=== PATIENT | female | born 1995 | race African-American/Black ===

== ENCOUNTER 2018-03-22 09:58 | Emergency (ER) | payer MEDICAID, OTHER ==
[~2018-03-22] VITALS: Ht 152.4 cm; Wt 46.7 kg
[2018-03-22 10:44] VITALS: BP 121/70
== END 2018-03-22 11:23 | disposition home or self-care (01) ==
LOC: ER 09:58
DX: E04.9 Nontoxic goiter, unspecified (principal); R05 Cough; R06.7 Sneezing; R11.10 Vomiting, unspecified

== ENCOUNTER 2024-01-28 14:29 | Emergency (ER) | payer SELFPAY ==
[~2024-01-28] VITALS: Ht 157.5 cm; Wt 54.5 kg
[2024-01-28 15:00] VITALS: PULSE 82; RESP 14; O2SAT 98
[2024-01-28] MEDS: LACTATED RINGER'S 1,000 ML IV ONE (15:32)
[2024-01-28] MEDS: MECLIZINE HCL 25 MG TAB PO ONE (15:32)
[2024-01-28] MEDS: ONDANSETRON ODT 4 MG TAB PO ONE (15:33)
[2024-01-28 15:35] VITALS: TEMP 98.2
[2024-01-28 15:41] LABS: Basophils # (auto) 0 10 ^3/uL (0-0.2); Basophils % (auto) 0.5 % (0.0-2.0); Eosinophils # (auto) 0 10 ^3/uL (0-0.8); Eosinophils % (auto) 0.6 % (0.0-7.0); Hematocrit 41.4 % (36.0-46.0); Hemoglobin 14.8 g/dL (12.2-16.2); Lymphocytes # (auto) 2.8 10 ^3/uL (0.4-5.4); Lymphocytes % (auto) 37.7 % (10.0-50.0); Mean Corpuscular Hemoglobin 29.9 pg (28.0-32.0); Mean Corpuscular Hgb Conc. 35.8 g/dL (32.0-36.0); Mean Corpuscular Volume 83.6 fL (80.0-100.0); Monocytes # (auto) 0.5 10 ^3/uL (0-1.3); Monocytes % (auto) 7.1 % (0.0-12.0); Neutrophils % (auto) 54.1 % (37.0-80.0); Nucleated Red Blood Cells % 0.7 %; Platelet Count (auto) 270 10^3/uL (140-450); Red Blood Cells 4.95 10^6/uL (4.0-5.20); Red Cell Distribution Width 13.4 % (11.8-14.3); White Blood Cell 7.4 10^3/uL (4.4-10.8)
[2024-01-28 15:44] LABS: Chloride 108 mmol/L (98-107); Potassium 3.2 mmol/L (3.5-5.1); Sodium 141 mmol/L (136-145)
[2024-01-28 15:45] LABS: Anion Gap 11 (5-15); Carbon Dioxide 22 mmol/L (20-31)
[2024-01-28 15:46] LABS: Calcium 10.2 mg/dL (8.7-10.4)
[2024-01-28 15:51] LABS: BUN/Creatinine Ratio 7.4 (10.0-20.0); Blood Urea Nitrogen 7 mg/dL (9-23); Glucose 117 mg/dL (74-106)
[2024-01-28 17:00] VITALS: BP 110/60; PULSE 84; RESP 14; O2SAT 100
[2024-01-28] MEDS: POTASSIUM CHL 20 Meq TABLET PO ONE (17:55)
== END 2024-01-28 18:03 | disposition home or self-care (01) ==
LOC: ER 14:29
DX: R42 Dizziness and giddiness (principal); E03.9 Hypothyroidism, unspecified
CPT/HCPCS: 36415; 80048; 85025; 93005; 96360; 96361; 99284; J7030; J8597; Q0162